=== PATIENT | female | born 1990 | race Two or more races ===

== ENCOUNTER → 2020-05-23 | Outpatient (CLI) | payer OTHER ==
[2020-05-24 06:15] LABS: RUBELLA AB IGG-REFLAB 8.52 index (Immune >0.99)
[2020-05-24 08:16] LABS: RUBEOLA (MEASLES) IGG >300.0 AU/mL (Immune >16.4)
== END | disposition home or self-care (01) ==
LOC: LABPV 10:38
PROVIDERS: ATTEND Internal Medicine
DX: Z02.1 Encounter for pre-employment examination (principal)
CPT/HCPCS: 86706; 86735; 86762; 86765; 86787

== ENCOUNTER 2021-07-28 15:19 | Emergency (ER) | payer SELFPAY ==
[~2021-07-28] VITALS: Ht 180.3 cm; Wt 108.0 kg
[2021-07-28] MEDS ORDERED: FLUORESCEIN SODIUM 1 MG STRIP OS ONE (15:45)
[2021-07-28] MEDS ORDERED: PROPARACAINE HCL 0.5% 15 ML OPHTHALMIC SOLUTION OS ONE (15:45)
[2021-07-28 17:23] VITALS: BP 120/57
[2021-07-28] MEDS ORDERED: IBUPROFEN 600 MG TABLET PO ONE (17:30)
[2021-07-28] MEDS ORDERED: ERYTHROMYCIN 0.5% 3.5 GM TUBE OPHTHALMIC OINTMENT OS ONE (17:30)
[2021-07-28] MEDS ORDERED: SULFACETAMIDE SODIUM 10% 15 ML OPHTHALMIC SOLUTION OS ONE (17:30)
== END 2021-07-28 17:38 | disposition home or self-care (01) ==
LOC: EMS 15:32
DX: S05.02XA Injury of conjunctiva and corneal abrasion without foreign body, left eye, initial encounter (principal); X58.XXXA Exposure to other specified factors, initial encounter; Y93.89 Activity, other specified; Y92.89 Other specified places as the place of occurrence of the external cause; Y99.8 Other external cause status
CPT/HCPCS: 99173; 99284; Z7502; Z7610